=== PATIENT | male | born 1960 | race Two or more races ===

== ENCOUNTER 2017-02-24 06:49 | Emergency (ER) | payer OTHER ==
[~2017-02-24] VITALS: Ht 180.3 cm; Wt 93.4 kg
[2017-02-24 07:17] LABS: BASOPHIL % 0.4 % (0-2); PLATELET COUNT 216 x10^3mcL (130-400); RED CELL DISTRIBUTION WIDTH 14.7 % (11.5-14.5)
[2017-02-24 07:18] LABS: rbc morphology (normal/abnorm) ABNORMAL (NORMAL)
[2017-02-24 07:25] LABS: UA SPECIFIC GRAVITY 1.025 (1.005-1.035); microscopic required? YES; urine erythrocyte 3+ (NEGATIVE)
[2017-02-24 07:33] LABS: CARBON DIOXIDE 25.4 mmol/L (21-32); CREATININE SERUM 1.4 mg/dL (0.7-1.3); POTASSIUM SERUM 3.7 mmol/L (3.5-5.1)
[2017-02-24 07:45] LABS: ALBUMIN 4.3 g/dL (3.4-5.0); BILIRUBIN TOTAL 0.7 mg/dL (0.20-1.00); TOTAL PROTEIN, SERUM 7.5 g/dL (6.4-8.2)
[2017-02-24 07:48] LABS: FREE T4 0.89 ng/dL (0.76-1.46); FREE THYROXINE INDEX 2.4 ug/dL (1.4-4.5); T4(THYROXINE) 6.8 ug/dL (4.7-13.3)
[2017-02-24 07:49] LABS: CHOLESTEROL/HDL RATIO 4.6
[2017-02-24 08:07] LABS: T3 TOTAL 0.93 ng/mL
[2017-02-24 09:03] VITALS: BP 129/79
== END 2017-02-24 09:03 | disposition home or self-care (01) ==
LOC: ED 06:49
PROVIDERS: Specialist
DX: N20.0 Calculus of kidney (principal)
CPT/HCPCS: 83880; 84439